=== PATIENT | female | born 1940 | race Caucasian/White ===

== ENCOUNTER → 2016-09-25 | Outpatient (CLI) | payer MEDICARE, BC ==
[~2016-09-25] MED LIST: AIDE PO; ALLEGRA180 MG PO; BETAPACE (GENER80 MG PO; CITRACAL + D E1 EACH PO; CRESTOR20 MG PO; FIBER CHOICE C1.5 GM PO; FIBER CHOICE1.5 GM PO; FLONASE 50 MCG/16 GM NOSE; HUMIBID LA (MU600 MG PO; LEVOTHROID (SY50 MCG PO; LIPITOR40 MG PO; MELATONIN1 MG PO; NORCO 5-325 MG1 TAB PO; OMEPRAZOLE40 MG PO; PROBIOTIC1 EAC1 PO; PROVENTIL OR V6.7 GM INH; SINGULAIR10 MG PO; SYMBICORT 16010.2 GM INH; VSL#3 CAPSULE1 EACH PO; XARELTO20 MG PO; ZANTAC (NON-FO150 MG PO
== END ==
LOC: GLAB 13:58
DX: R19.7 Diarrhea, unspecified (principal)

== ENCOUNTER → 2016-10-07 | Outpatient (CLI) | payer MEDICARE, BC | END | disposition disaster alternative care site (69) | LOC: LGSMG 13:05 | DX: Z22.1 Carrier of other intestinal infectious diseases (principal); R19.7 Diarrhea, unspecified ==

== ENCOUNTER 2016-10-23 17:30 | Emergency (ER) | payer MEDICARE, BC ==
--- NOTE | ~2016-10-23 | ER ---
[facility] AGE[facility] 76 Y [address] ROOM: [place] [address] LOCATION: [facility] ADMIT DATE: 10/23/2016 ER/Outpatient Report DISCHARGE DATE: 10/23/2016 FAMILY PHYSICIAN: Norma Evangelista MD ATTENDING PHYSICIAN: Mona Mccormack CHIEF COMPLAINT: Burning on urination. HISTORY OF PRESENT ILLNESS: The patient states that she initially had burning with urination, was seen on three days ago and started on Macrobid as well as Flagyl. The patient has a recent history of C. difficile. The cause of that according to the patient is unknown. She has had a 3 to 4 weeks of not having diarrhea stools. She states she has taken 2-1/2 days of this antibiotic and she actually no longer has burning with urination, but she has a full sensation and urgency suprapubically. She is concerned that she still has a bladder infection and she also noted that she was having diarrhea today, and therefore, she is concerned that the C. difficile has returned. PAST MEDICAL HISTORY: 1. C. difficile. 2. Hypothyroidism. 3. Atrial fibrillation. 4. Gastroesophageal reflux disease. 5. Hyperlipidemia. PAST SURGICAL HISTORY: Unknown. ALLERGIES: BACTRIM AND BEXTRA. HOME MEDICATIONS: 1. Levothyroxine. 2. Omeprazole. 3. Atorvastatin. 4. Sotalol. 5. Xarelto. REVIEW OF SYSTEMS: CONSTITUTIONAL: The patient denies any fevers, chills, or sweats. HEENT: She denies any headache, nasal congestion, or sore throat. CARDIOVASCULAR: No palpitations or chest pain. RESPIRATORY: She denies any shortness of breath or cough. PATIENT'S NAME: YVES CUADRA [facility] AGE: 76 Y [address] ROOM: [place] [address] LOCATION: ED ADMIT DATE: 10/23/2016 ER/Outpatient Report DISCHARGE DATE: 10/23/2016 FAMILY PHYSICIAN: Norma Evangelista MD ATTENDING PHYSICIAN: Mona Mccormack GASTROINTESTINAL: No nausea or vomiting. She did have diarrhea today several times and has a recent history of C. difficile. She does complain of a burning sensation in her lower abdomen suprapubically and to the left lower quadrant. GENITOURINARY: She states she has urgency and burning. Burning has improved with the antibiotics, but she still has a sense of urgency. NEUROLOGIC: She denies any weakness, dizziness, or paresthesias. MUSCULOSKELETAL: No complaints. HEMATOLOGY: No new bruising or bleeding. SKIN: No rashes or lesions. PHYSICAL EXAMINATION: VITAL SIGNS: Heart rate 63, respirations are 16, temperature 97.8, and blood pressure 170/76. GENERAL APPEARANCE: [place], warm, and dry. Alert and oriented, in no acute distress. HEENT: Head is normocephalic. Eyes, ears, nose, and throat are not examined. NECK: Supple. No lymphadenopathy. LUNGS: Clear to anterior-posterior auscultation. No wheezes or crackles. Respiratory effort is normal. HEART: Rate is regular in rhythm. Normal S1 and S2. No murmurs noted. ABDOMEN: Soft, not distended. Bowel sounds are present in all 4 quadrants. No masses noted. She does have tenderness in the left lower quadrant to palpation. There is no tenderness in the suprapubic area. No organomegaly. No guarding. EXTREMITIES: Capillary refill is less than 3 seconds. Peripheral pulses are 2+. No peripheral edema noted. Full range of motion of all extremities. NEUROLOGIC: Cranial nerves 2 through 12 are grossly intact. LABORATORY DATA: WBC is 6.6, hemoglobin 13.1, hematocrit 39.2, and platelets 307,000. Sodium 131, potassium 4.2, blood sugar is 100, BUN of 18, and creatinine 0.9. Liver enzymes are within normal limits. CRP is less than 0.29. Urinalysis was obtained on the patient's admission to the ER and it shows no leukocytes, no nitrites, 0-2 wbc's, 0-2 rbc's, 2-5 epithelial cells, and rare bacteria. The patient did have loose stool while in the emergency room and that was sent to the lab and came back negative for C. difficile. IMPRESSION/ASSESSMENT: 1. Dysuria. 2. Recent Clostridium difficile. EMERGENCY DEPARTMENT COURSE: The patient remained relatively comfortable, had no complaints, and did not require any pain medication. We did do a postvoid bladder scan which showed PATIENT'S NAME: YVES CUADRA [facility] AGE: 76 Y [address] ROOM: [place] [address] LOCATION: [facility] ADMIT DATE: 10/23/2016 ER/Outpatient Report DISCHARGE DATE: 10/23/2016 FAMILY PHYSICIAN: Norma Evangelista MD ATTENDING PHYSICIAN: Mona Mccormack no urine left in the bladder. DISPOSITION AND PLAN: The patient will hold both the metronidazole and nitrofurantoin tonight. She will contact either Dr. Evangelista or Dr. Lopez in the morning. It is unknown if her urine culture had been ordered at this time. She left the sample at their clinic. She will follow up with one of those two physicians tomorrow to see if she should continue her medication and for further advice on her sense of urgency. CHARLIE DÍAZ APRN FOR ALESSANDRO MCCOY MD DP/modl /[id number] d: 10/24/16 0105 t: 11/15/16 1455, OUTPATIENT REPORT
[~2016-10-23 17:30] MED LIST changes: -FIBER CHOICE C1.5 GM PO; -FLONASE 50 MCG/16 GM NOSE; -PROBIOTIC1 EAC1 PO; -PROVENTIL OR V6.7 GM INH; -SYMBICORT 16010.2 GM INH; -VSL#3 CAPSULE1 EACH PO; -ZANTAC (NON-FO150 MG PO
[2016-10-23 17:46] LABS: BILIRUBIN URINE NEGATIVE (NEGATIVE); BLOOD URINE 10 /UL (NEGATIVE); COLOR URINE YELLOW (YELLOW); GLUCOSE URINE NEGATIVE (NEGATIVE); KETONE URINE NEGATIVE (NEGATIVE); LEUKOCYTES URINE NEGATIVE /UL (NEGATIVE); NITRITE URINE NEGATIVE (NEGATIVE); PROTEIN URINE NEGATIVE (NEGATIVE); TURBIDITY URINE CLEAR (CLEAR); UROBILINOGEN URINE NORMAL (NORMAL)
[2016-10-23 17:54] LABS: BACTERIA URINE RARE (NEGATIVE); RBC URINE 0-2 #/HPF (NEGATIVE); WBC URINE 0-2 #/HPF (NEGATIVE)
[2016-10-23 18:56] LABS: BASOPHIL % 0.6 %; EOSINOPHIL # 0.3 K/uL (0.0-0.5); EOSINOPHIL % 5.2 %; HEMATOCRIT 39.2 % (33.0-46.0); HEMOGLOBIN 13.1 g/dL (10.0-15.0); IMMATURE GRANULOCYTE % 0.3 %; LYMPHOCYTE # 1.4 K/uL (0.8-4.0); LYMPHOCYTE % 20.9 %; MCH 28.5 pg (27.0-34.0); MCHC 33.4 gm/dL (32.0-36.5); MCV 85.4 fl (83.0-98.0); MONOCYTE # 0.6 K/uL (0.0-1.0); MONOCYTE % 8.7 %; MPV 9.4 fl (9.4-12.4); NEUTROPHIL # (ANC) 4.2 K/uL (1.8-7.8); NEUTROPHIL % 64.3 %; NRBC % 0 /100WBC (0-0.00); PLATELET COUNT 307 K/uL (150-450); RBC 4.59 M/uL (3.50-5.50); RDW-CV 14.1 % (11.9-14.6); WBC 6.6 K/uL (4.0-11.0)
[2016-10-23 19:13] LABS: ALBUMIN 3.5 gm/dL (3.5-5.0); ALK PHOS 42 IU/L (33-138); ALT 25 IU/L (12-78); ANION GAP 14.2 (10.0-19.0); AST 16 IU/L (10-40); BLOOD UREA NITROGEN 8 mg/dL (6-24); CALCIUM 8.7 mg/dL (8.5-10.5); CHLORIDE 96 mMol/L (96-110); CO2 25 mMol/L (22-32); CREATININE 0.9 mg/dL (0.5-1.1); ESTIMATED GFR (MDRD EQUATION) > 60; POTASSIUM 4.2 mMol/L (3.7-5.1); SODIUM 131 mMol/L (135-145); TOTAL BILIRUBIN 0.3 mg/dL (0.0-1.5); TOTAL PROTEIN 6.4 g/dL (6.0-8.4)
[2017-02-03] MEDS ORDERED: FLONASE 50 MCG/16 GM NOSE (09:29)
[2017-02-03] MEDS ORDERED: SYMBICORT 16010.2 GM INH (09:29)
[2017-02-03] MEDS ORDERED: FIBER CHOICE C1.5 GM PO (09:30)
[2017-02-03] MEDS ORDERED: ALLEGRA180 MG PO (09:31)
[2017-02-03] MEDS ORDERED: ZANTAC (NON-FO150 MG PO (09:31)
[2017-02-03] MEDS ORDERED: PROVENTIL OR V6.7 GM INH (09:32)
[2017-02-03] MEDS ORDERED: PROBIOTIC1 EAC1 PO (09:33)
[2017-02-03] MEDS ORDERED: VSL#3 CAPSULE1 EACH PO (09:33)
== END 2016-10-23 21:15 | disposition disaster alternative care site (69) ==
LOC: GMED 17:30
PROVIDERS: Emergency Medicine; Family Medicine
PROC: 4A0D7LZ Measurement of Urinary Volume, Via Natural or Artificial Opening (ICD-10-PCS; principal; 2016-10-23)
DX: R30.0 Dysuria (principal); B96.89 Other specified bacterial agents as the cause of diseases classified elsewhere; E03.9 Hypothyroidism, unspecified; I48.91 Unspecified atrial fibrillation; K21.9 Gastro-esophageal reflux disease without esophagitis; E78.5 Hyperlipidemia, unspecified; Z88.1 Allergy status to other antibiotic agents; Z79.899 Other long term (current) drug therapy

== ENCOUNTER → 2016-10-24 | Outpatient (CLI) | payer MEDICARE, BC ==
[~2016-10-24] MED LIST changes: +FIBER CHOICE C1.5 GM PO; +FLONASE 50 MCG/16 GM NOSE; +PROBIOTIC1 EAC1 PO; +PROVENTIL OR V6.7 GM INH; +SYMBICORT 16010.2 GM INH; +VSL#3 CAPSULE1 EACH PO; +ZANTAC (NON-FO150 MG PO
== END | disposition disaster alternative care site (69) ==
LOC: LGSMG 12:36
DX: Z22.1 Carrier of other intestinal infectious diseases (principal); R19.7 Diarrhea, unspecified

== ENCOUNTER → 2016-10-25 | Outpatient (CLI) | payer MEDICARE, BC | END | disposition disaster alternative care site (69) | LOC: GRAD 08:47 | DX: R41.3 Other amnesia (principal); R42 Dizziness and giddiness; G31.9 Degenerative disease of nervous system, unspecified ==

== ENCOUNTER → 2016-10-27 | Outpatient (CLI) | payer MEDICARE, BC ==
--- NOTE | ~2016-10-27 | PUL ---
[facility] AGE: 76 Y [address] ROOM: [place] [address] LOCATION: [facility] ADMIT DATE: 10/27/2016 Pulmonary DISCHARGE DATE: FAMILY PHYSICIAN: Norma Evangelista MD ATTENDING PHYSICIAN: BERNARD DE LA GARZA NAME OF PROCEDURE: Pulmonary Function Test DATE OF PROCEDURE: October 29, 2016 TECH: EDVIN Ayala REASON FOR EXAM: Chronic cough RESULTS: 1. FVC was 2.37 liters which is 96% of predicted and normal, FEV1 was 1.7 liters which is 92% of predicted and normal, and FEV1/FVC was 72% and normal. The flow volume curve did not reveal any significant airflow limitation. After bronchodilator administration FVC decreased to 1.98 liters and FEV1 decreased to 1.48 liters. FEV1/FVC was 75%. Please note that the patient had received methacholine before albuterol administration. 2. DLCO was 12.7 with an adjusted DLCO of 12.5 which is 71% of predicted and normal. 3. Total lung capacity was 4.31 liters which is 99% of predicted and normal, and residual volume was 1.95 liters which is 106% of predicted and normal. 4. Methacholine challenge. The patient had increasingly higher concentrations of methacholine solution administered. At level 4 her FEV1 dropped by 26% and at level 5 by 27%. PHYSICIAN INTERPRETATION: The patient has no airflow limitation and no significant bronchodilator response. Her diffusion is normal. There is no evidence of restrictive lung disease. She has a positive methacholine challenge test which is suggestive of bronchial hyperresponsiveness. Clinical correlation is advised. MD WILFRIDO ZHENG/roni PAT[facility]'S [facility]: [facility] AGE: 76 Y [address] ROOM: [place] [address] LOCATION: [facility] ADMIT DATE: 10/27/2016 Pulmonary DISCHARGE DATE: FAMILY PHYSICIAN: Norma Evangelista MD ATTENDING PHYSICIAN: BERNARD DE LA GARZA /[id number] dtt: 10/28/16 1204 , BERNARD DE LA GARZA dtd: 10/28/16 1054
== END | disposition disaster alternative care site (69) ==
LOC: GRTH 08:30
DX: R05 Cough (principal)
CPT/HCPCS: J7674

== ENCOUNTER → 2016-10-31 | Outpatient (CLI) | payer MEDICARE, BC | END | disposition disaster alternative care site (69) | LOC: LGSMG 12:27 | DX: N39.0 Urinary tract infection, site not specified (principal); N76.0 Acute vaginitis ==

== ENCOUNTER → 2016-11-22 | Outpatient (CLI) | payer MEDICARE, BC | LOC: LGSMG 14:55 | DX: N39.0 Urinary tract infection, site not specified (principal) ==

== ENCOUNTER → 2016-12-16 | Outpatient (CLI) | payer MEDICARE, BC | END | disposition disaster alternative care site (69) | LOC: LGSMG 15:31 | DX: Z22.1 Carrier of other intestinal infectious diseases (principal); A04.7 Enterocolitis due to Clostridium difficile ==

== ENCOUNTER → 2017-02-06 | Day surgery (SDC) | payer MEDICARE, BC ==
[~2017-02-06] VITALS: Ht 160 cm; Wt 67.2 kg
== END | disposition disaster alternative care site (69) ==
LOC: GPOC 02-03 09:00 → GEND 08:05 → GPOC 08:30
PROC: 3E0H8GC Introduction of Other Therapeutic Substance into Lower GI, Via Natural or Artificial Opening Endoscopic (ICD-10-PCS; principal; 2017-02-06)
DX: A04.8 Other specified bacterial intestinal infections (principal); B96.89 Other specified bacterial agents as the cause of diseases classified elsewhere; M19.90 Unspecified osteoarthritis, unspecified site; M81.0 Age-related osteoporosis without current pathological fracture; K21.9 Gastro-esophageal reflux disease without esophagitis; E78.00 Pure hypercholesterolemia, unspecified; I48.91 Unspecified atrial fibrillation; J45.909 Unspecified asthma, uncomplicated; Z96.653 Presence of artificial knee joint, bilateral; Z98.890 Other specified postprocedural states; Z79.899 Other long term (current) drug therapy; Z88.2 Allergy status to sulfonamides; Z88.8 Allergy status to other drugs, medicaments and biological substances
CPT/HCPCS: J2001; J7030

== ENCOUNTER → 2017-02-16 | Outpatient (CLI) | payer MEDICARE, BC | END | disposition disaster alternative care site (69) | LOC: LGSMG 09:49 | DX: R19.7 Diarrhea, unspecified (principal); Z86.19 Personal history of other infectious and parasitic diseases ==